=== PATIENT | female | born 1990 | race Caucasian/White ===

== ENCOUNTER 2016-12-02 06:13 | Inpatient (IN) | payer OTHER ==
[~2016-12-02 06:13] MED LIST: Buffered Lidocaine 1% SYR 3ML* 3 ML/SYR SYRINGE INTRADERM ONE; Sodium Citrate/Citric Acid* 15 ML UDC PO ONE
[2016-12-02] MEDS ORDERED: Sodium Citrate/Citric Acid* 15 ML UDC ONE (06:51)
[2016-12-02] MEDS ORDERED: ceFOXitin 2 GM IVPREMIX* 2 GM/50 ML BAG ONE (06:51)
[2016-12-02] MEDS ORDERED: Morphine PF AMP (0.5MG/ML)* 5 MG/10 ML AMP ONE (07:43)
[2016-12-02] MEDS ORDERED: OXYTOCIN* 10 UNITS/ML 1 ML VIAL ONE (07:54)
[2016-12-02] MEDS ORDERED: Bupivacaine 0.5% SDV PF* 30 ML VIAL ONE (07:54)
[2016-12-02] MEDS ORDERED: Ondansetron INJ* 2 MG/ML VIAL ONE (08:09)
[2016-12-02] MEDS ORDERED: Famotidine IV* 10 MG/ML 2 ML (20 mg) ONE (08:09)
[2016-12-02] MEDS ORDERED: Dexamethasone IV* 4 MG/ML 1 ML (4 MG) ONE (08:38)
[2016-12-02] MEDS ORDERED: EPHEDrine (Pressors)* 50 MG/ML VIAL ONE (08:38)
[2016-12-02] MEDS ORDERED: Phenylephrine IV* 40 MCG/ML 10 ML SYRINGE ONE (08:38)
[2016-12-02] MEDS ORDERED: Ketorolac INJ* 30 MG/ML 1 ML VIAL ONE (08:56)
[2016-12-02] MEDS ORDERED: Ondansetron INJ* 2 MG/ML VIAL IV PRN ×2 (08:59→09:06)
[2016-12-02] MEDS ORDERED: fentaNYL* 50 MCG/ML 2 ML VIAL (100 MCG VIAL) IV PRN (08:59)
[2016-12-02] MEDS ORDERED: Levalbuterol 0.63MG/3ML NEB INH PRN (08:59)
[2016-12-02] MEDS ORDERED: Scopolamine 1.5 mg* PATCH ONE (09:01)
[2016-12-02] MEDS ORDERED: Metoclopramide IV* 5 MG/ML 2 ML VIAL ONE (09:01)
[2016-12-02] MEDS ORDERED: Nalbuphine* 20 MG/ML 1 ML VIAL IV PRN (09:06)
[2016-12-02] MEDS ORDERED: diPHENhydraMINE IV* 50 MG/ML 1 ml VIAL (BENADRYL) IV PRN (09:06)
[2016-12-02] MEDS ORDERED: Naloxone* 0.4 MG/ML 1 ML VIAL IV PRN (09:06)
[2016-12-02] MEDS ORDERED: HYDROcodone/ACETAMIN 5-325 MG* 1 TAB PO PRN ×2 (09:06)
[2016-12-02] MEDS ORDERED: PROCHLORPERAZINE INJ 5 MG/ML 2 ML VIAL IV PRN (09:06)
[2016-12-02] MEDS ORDERED: oxyCODONE/Acetamin 5/325 MG* TAB PO PRN (09:36)
[2016-12-02] MEDS ORDERED: Dibucaine 1% 28.35 GM TUBE PR PRN (09:36)
[2016-12-02] MEDS ORDERED: Albuterol HFA INHALER* 8 gm MDI INH PRN (09:38)
[2016-12-02] MEDS: Acetaminophen TAB* 325 MG PO SCH ×4 (10:03→22:03)
[2016-12-02] MEDS: Simethicone TAB* 80 MG TAB.CHEW PO SCH ×3 (12:53→22:00)
[2016-12-02] MEDS: Docusate CAP* 100 MG PO SCH ×2 (14:09→22:00)
[2016-12-02] MEDS: Ketorolac INJ* 30 MG/ML 1 ML VIAL IV SCH ×2 (16:01→22:00)
[2016-12-02] MEDS: Mometasone 220 MCG MDI INH SCH (22:00)
[2016-12-03] MEDS: Ketorolac INJ* 30 MG/ML 1 ML VIAL IV SCH (04:21)
[2016-12-03] MEDS: Famotidine TAB* 20 MG PO SCH (08:42)
[2016-12-03] MEDS: Simethicone TAB* 80 MG TAB.CHEW PO SCH ×4 (08:42→20:05)
[2016-12-03] MEDS: Docusate CAP* 100 MG PO SCH ×3 (08:42→20:05)
[2016-12-03 09:42] LABS: Hematocrit 36 % (35-47); Hemoglobin 11.7 g/dl (12.0-16.0); Mean Corpuscular HGB Conc 33 g/dl (31-36); Mean Corpuscular Hemoglobin 31 pg (27-31); Mean Corpuscular Volume 94 fL (80-97); Mean Platelet Volume 8 um3 (7.4-10.4); Red Blood Count 3.79 10^6/ul (4.0-5.4); Red Cell Distribution Width 14 % (10.5-15); White Blood Count 15.1 10^3/ul (3.5-10.8)
[2016-12-03] MEDS: Ibuprofen TAB* 600 MG PO SCH ×3 (11:32→23:57)
[2016-12-03] MEDS: oxyCODONE/Acetamin 5/325 MG* TAB PO PRN ×3 (11:33→20:05)
[2016-12-03] MEDS: Mometasone 220 MCG MDI INH SCH (20:48)
[2016-12-04] MEDS: oxyCODONE/Acetamin 5/325 MG* TAB PO PRN ×4 (01:57→21:08)
[2016-12-04] MEDS: Ibuprofen TAB* 600 MG PO SCH ×4 (03:43→21:08)
[2016-12-04] MEDS: Famotidine TAB* 20 MG PO SCH (08:32)
[2016-12-04] MEDS: Simethicone TAB* 80 MG TAB.CHEW PO SCH ×4 (08:32→21:08)
[2016-12-04] MEDS: Docusate CAP* 100 MG PO SCH ×3 (08:32→21:08)
[2016-12-04] MEDS: Mometasone 220 MCG MDI INH SCH (21:37)
[2016-12-05] MEDS: oxyCODONE/Acetamin 5/325 MG* TAB PO PRN ×2 (03:56→08:25)
[2016-12-05] MEDS: Ibuprofen TAB* 600 MG PO SCH ×2 (03:57→10:21)
[2016-12-05 08:15] VITALS: BP 136/78
[2016-12-05] MEDS: Famotidine TAB* 20 MG PO SCH (08:25)
[2016-12-05] MEDS: Simethicone TAB* 80 MG TAB.CHEW PO SCH (08:25)
[2016-12-05] MEDS: Docusate CAP* 100 MG PO SCH (08:25)
--- NOTE | 2016-12-06 21:15 | OP ---
OPERATIVE REPORT: DATE OF OPERATION: 12/02/16 DATE OF : 89 SURGEON: Puja Arce MD [facility] [employer] HAT BLOCKER: Dr. Anguiano. PRE-OP DIAGNOSES: 1. History of prior section at 39 plus 0 weeks' gestation. 2. Morbid obesity. 3. Satisfied parity. POST-OP DIAGNOSES: 1. History of prior section at 39 plus 0 weeks' gestation. 2. Morbid obesity. 3. Satisfied parity. OPERATIVE PROCEDURE: Repeat low-transverse section with vacuum assist and bilateral tubal ligation. ANESTHESIA: Spinal ESTIMATED BLOOD LOSS: 900 cc. URINE OUTPUT: 200 cc. IV FLUIDS: 2800 cc lactated Ringer's. MATERIALS TO LAB: Cord blood and bilateral cord segments. INDICATIONS: This patient is a 26-year-old 2, para 1, at 39 plus 0 weeks' gestation. The patient had a that was only complicated by a history of prior section and morbid obesity. The patient elected to have a repeat section and she desired to have permanent sterilization performed at that time. She was extensively counselled and consent was signed. FINDINGS: Normal-appearing uterus, fallopian tubes, and ovaries. The uterus was unlabored, so delivery required vacuum assistance. Delivery was productive of a 7 pounds 13 ounce female infant with Apgars of 9 and 9. Time of delivery was 0833. COMPLICATIONS: None. DESCRIPTION OF PROCEDURE: The risks, benefits, and alternatives were described to the patient, and informed consent was obtained. The patient was taken to the operating room with IV running, where spinal anesthesia was induced and found to be adequate. The patient was prepped and draped in normal sterile fashion in the dorsal supine position with a leftward tilt. A Pfannenstiel skin incision was made with a scalpel through the patient's previous incision. This was carried down to the underlying fascia using the scalpel. The fascia was scored in the midline, and the incision was extended using Magaña scissors. The fascia was dissected off the underlying rectus muscles using blunt and sharp dissection. The rectus muscles were in the midline using dissection with a Skylar clamp. The peritoneum was then entered bluntly. A bladder blade was placed. A low transverse uterine incision was then made with the scalpel. This was carried down to the amniotic membranes. The membranes were then ruptured, productive of clear fluid. The uterine incision was extended using blunt traction. The head was elevated to the level of the incision, but despite fundal pressure, the head could not be delivered. This was partly due to the patient's morbid obesity. A Kiwi vacuum cup was placed on the head, and with pressure and traction, the head then delivered without difficulty. The shoulders then were also both delivered and the body followed. The had excellent tone and cried immediately on delivery. The cord was doubly clamped and cut. The infant was then handed to the awaiting decorating machine tender. Cord blood was collected. The placenta was delivered with manual extraction. The uterus was then exteriorized and cleared of all clots and debris. The uterine incision was then reapproximated using 0 Polysorb in a running-locked fashion. A second layer of imbricating 0 Polysorb sutures was then also placed for good hemostasis. The posterior cul-de-sac was irrigated with saline. The right fallopian tube was then grasped with a Sylvia clamp in the midisthmic region and the mesosalpinx was opened with the Bovie. An approximately 2-3 cm segment of tube was tied off with 2-0 plain gut suture. The segment was excised with Metzenbaum scissors and there was good hemostasis. The same was then performed on the patient's left side. The uterus was then returned to the abdomen. The incision was reinspected and still noted to be hemostatic. The peritoneum was closed with 3-0 Polysorb in a running fashion. The fascia was closed with 0 Polysorb in a running fashion. The subcutaneous tissues were copiously irrigated and made hemostatic using the Bovie. The subcutaneous tissues were then reapproximated using 3-0 Polysorb in interrupted stitches. The skin was then closed with fifi. A sterile bandage was then placed over the incision. The patient tolerated the procedure well. Sponge, lap, and needle counts were correct x2. [id number]/CPS #: [id number] [facility]
== END 2016-12-05 10:31 | disposition home or self-care (01) | DRG 540 ==
LOC: MCHOB 06:13
PROVIDERS: ADMIT Obstetrics & Gynecology; ATTEND Obstetrics & Gynecology
PROC: 0UB70ZZ Excision of Bilateral Fallopian Tubes, Open Approach (ICD-10-PCS; 2016-12-02)
PROC: 10D00Z1 Extraction of Products of Conception, Low, Open Approach (ICD-10-PCS; principal; 2016-12-02 07:45)
DX: O34.211 Maternal care for low transverse scar from previous cesarean delivery (principal); Z68.41 Body mass index [BMI] 40.0-44.9, adult; O99.214 Obesity complicating childbirth; E66.01 Morbid (severe) obesity due to excess calories; Z37.0 Single live birth; Z3A.39 39 weeks gestation of pregnancy
CPT/HCPCS: 36415; 85025; 88302; A9270-GY; J0694; J1100; J1885; J2405; J2590; J2765; J3010

== ENCOUNTER 2018-08-18 12:31 | Emergency (ER) | payer BC, OTHER ==
[2018-08-18 12:43] VITALS: BP 119/68
[2018-08-18] MEDS ORDERED: Albuterol/Ipratropium NEB.SOL* Albuterol 2.5 MG/Ipratropium 0.5 MG 3 ML INH ONE (13:46)
--- NOTE | 2018-08-18 13:46 | UC ---
Respiratory Complaint HPI - HPI Summary HPI Summary: MD note: vital signs stable; afebrile. 05/15 chest discomfort; diffuse feeling of shortness of breath. Wheezing. Constant over 2 days. Chest feels tight and uncomfortable. Nurse's note: Some difficulty breathing, Hx asthma, lots of congestion, chest and lungs feel sore, she has been coughing. No fevers. not a very productive cough. - History of Current Complaint Chief Complaint: UCRespiratory Stated Complaint: CONGESTION, EAR PAIN Time Seen by Provider: 08/18/18 13:31 Hx Obtained From: Patient Hx Last Menstrual Period: 08/11/18 ?: No Timing: Constant Severity Initially: Mild Severity Currently: Mild Pain Intensity: 7 Character: Cough: Nonproductive Aggravating Factors: Deep Breaths Alleviating Factors: Bronchodilator Associated Signs And Symptoms: Positive: Wheezing, Nasal Congestion - Allergies/Home Medications Allergies/Adverse Reactions: Allergies Allergy/AdvReac Type Severity Reaction Status Date / Time amoxicillin Allergy Hives Verified 08/18/18 12:43 Home Medications: Home Medications Budesonide/Formote 160/4.5(NF) [Symbicort 160/4.5 (NF)] 1 puff INH DAILY [History Confirmed 08/18/18] PMH/Surg Hx/FS Hx/Imm Hx - Additional Past Medical History Additional PMH: Patient with hx of asthma: on symbacort and ventolin. Previously Healthy: Yes Other History Of: Negative For: Anticoagulant Therapy - Surgical History Surgical History: Yes Surgery Procedure, Year, and Place: x2. tubal ligation - Family History Known Family History: Positive: Respiratory Disease - Social History Alcohol Use: Occasionally Substance Use Type: Marijuana Substance Use Comment - Amount & Last Used: daily use to help nausea per pt Smoking Status (MU): Former Smoker Have You Smoked in the Last Year: Yes - Immunization History Most Recent Influenza Vaccination: unk Most Recent Tetanus Shot: unk Most Recent Pneumonia Vaccination: unk Review of Systems Constitutional: Negative Skin: Negative Eyes: Negative ENT: Negative Respiratory: Shortness Of Breath, Cough, Other - wheezing; tihtness of chest Cardiovascular: Negative Gastrointestinal: Negative Genitourinary: Negative Motor: Negative Neurovascular: Negative Musculoskeletal: Negative Neurological: Negative Psychological: Negative Is Patient Immunocompromised?: No All Other Systems Reviewed And Are Negative: Yes Physical Exam - Summary Physical Exam Summary: PHYSICAL EXAM: Appearance: The patient is well-appearing, is in no pain or distress, and is well-nourished. Eyes: Conjunctiva are clear. Pupils are equal and reactive to light and accommodation. Extra ocular muscle movement is intact. ENT: The hearing is grossly normal, the pharynx is normal, and the right TM is red. There is no muffled or hoarse voice. No stridor. Mouth: tender in the area of the third molar, lower left. Neck: The neck is supple and there is no lymphadenopathy. Respiratory: The chest is nontender to palpation and without crepitus.. Scattered wheezes, and rhonchi. Cardiovascular: Heart sounds reveal a regular rate and rhythm. There are no clicks, rubs or murmurs. There are no carotid bruits or thrills. Circulation is grossly intact. Abdomen: The abdomen is soft and nontender. There is no organomegaly. Bowel sounds are present and within normal limits. No point tenderness at McBurneys point. Musculoskeletal: Strength is intact. The patient moves all extremities. x. Neurological: The patient is alert. Motor and sensory are examination grossly intact. Speech is normal. Psychological: The patient displays age appropriate behavior Skin: Negative for rashes. Post-treatment: much improved; rare wheeze. MEDICATIONS REVIEWED: Medications have been included in the original chart and reviewed. Triage Information Reviewed: Yes Vital Signs: Initial Vital Signs Temp 98.9 F 08/18/18 12:38 Pulse 89 08/18/18 12:38 Resp 20 08/18/18 12:38 BP 119/68 08/18/18 12:38 Pulse Ox 98 08/18/18 12:38 Diagnostic Evaluation - Laboratory O2 Sat by Pulse Oximetry: 98 Respiratory Course/Dx - Differential Dx/Diagnosis Differential Diagnosis/HQI/PQRI: Asthma, Bronchitis Provider Diagnoses: 1. BRONCHITIS WITH BRONCHOSPASM. 2. ASTHMA. 3. RIGHT OTITIS MEDIA. 4. LEFT LOWER THIRD MOLAR DISCOMFORT: ? PERICORONITIS. Discharge - Sign-Out/Discharge Documenting (check all that apply): Patient Departure All imaging exams completed and their final reports reviewed: Yes - Discharge Plan Condition: Stable Disposition: HOME Prescriptions: Albuterol HFA INHALER* [Ventolin HFA Inhaler*] 1 - 2 puff INH Q4H #1 mdi MDD 8 puffs Clindamycin Cap(NF) [Clindamycin Cap 300 mg Cap(NF)] 300 mg PO TID 7 Days #21 cap MDD 3 Dexamethasone TAB* [Decadron TAB*] 4 mg PO DAILY 4 Days #4 tab MDD 1 Inhaler, Assist Devices [Aerochamber Mv] 1 mis XX Q6HR #1 mis Patient Education Materials: Asthma (DC) Forms: *Work Release Referrals: No Primary Care Phys,NOPCP [Primary Care Provider] - Additional Instructions: WE DISCUSSED: PLEASE SEEK CARE AT THE EMERGENCY DEPARTMENT IF SYMPTOMS WORSEN OR IF NEW SYMPTOMS DEVELOP. FOLLOW UP WITH YOUR PRIMARY CARE PHYSICIAN IF CONDITION CONTINUES BEYOND 3 DAYS WITHOUT IMPROVEMENT. You have the followin. asthma 2. bronchitis with bronchospasm 3. right middle ear infection 4. left lower wisdom tooth impaction and possible infection I have prescribed: 1. albuterol and spacer 2. clindamycin for 7 days 3. dexamethasone for 2 days for the bronchospasm Recheck at any time for increased pain, temperature, difficulty breathing or swallowing. - Billing Disposition and Condition Condition: STABLE Disposition: Home
== END 2018-08-18 14:30 | disposition home or self-care (01) ==
LOC: UCEAST 12:31
DX: J45.909 Unspecified asthma, uncomplicated (principal); R07.89 Other chest pain; H66.91 Otitis media, unspecified, right ear; K08.89 Other specified disorders of teeth and supporting structures; Z88.3 Allergy status to other anti-infective agents; Z87.891 Personal history of nicotine dependence
CPT/HCPCS: 99212; A9270-GY; G0463

== ENCOUNTER 2019-08-14 08:14 | Emergency (ER) | payer OTHER ==
--- NOTE | 2019-08-14 08:27 | ED ---
Asthma - HPI Summary HPI Summary: This pt is a 29 y/o female, with hx of asthma, [facility]. Pt reports her symptoms began this morning upon waking up. She notes she has a nonproductive cough. Denies fever or chills. Pt states she ran out of her asthma medications. She did not use albuterol today because she does not have any. Pt is a former tobacco user, quit 4 weeks ago. Denies alcohol and drug use. - History of Current Complaint Chief Complaint: EDAsthma Stated Complaint: ASTHMA PER PT Time Seen by Provider: 08/14/19 08:18 Hx Obtained From: Patient Hx Last Menstrual Period: 12/24/18 Onset/Duration: Lasting Hours, Still Present Timing: Hours Current Severity: None Pain Intensity: 0 Pain Scale Used: 0-10 Numeric Location/Character: Cough (Nonproductive) Aggravating Symptoms: Nothing Alleviating Symptoms: Nothing Associated Signs and Symptoms: Positive: Shortness of Breath - Allergy/Home Medications Allergies/Adverse Reactions: Allergies Allergy/AdvReac Type Severity Reaction Status Date / Time amoxicillin Allergy Hives Verified 01/06/19 11:10 Home Medications: Home Medications Budesonide/Formote 80/4.5(NF) [Symbicort 80/4.5 (NF)] 1 puff INH BID 08/14/19 [ History Confirmed 08/14/19] PMH/Surg Hx/FS Hx/Imm Hx Endocrine/Hematology History: Denies: Hx Anticoagulant Therapy, Hx Diabetes, Hx Thyroid Disease Cardiovascular History: Denies: Hx Hypertension Respiratory History: Reports: Hx Asthma Denies: Hx Chronic Obstructive Pulmonary Disease (COPD) GI History: Denies: Hx Ulcer - Surgical History Surgical History: Yes Surgery Procedure, Year, and Place: x2. tubal ligation - Immunization History Date of Tetanus Vaccine: 2007 Infectious Disease History: No Infectious Disease History: Denies: Hx Hepatitis, Hx Human Immunodeficiency Virus (HIV), Traveled Outside the [place] in Last 30 Days - Family History Known Family History: Positive: Respiratory Disease - asthma - Social History Alcohol Use: Occasionally Substance Use Type: Reports: Marijuana Substance Use Comment - Amount & Last Used: daily use to help nausea per pt Smoking Status (MU): Former Smoker Amount Used/How Often: quit 4 weeks ago Have You Smoked in the Last Year: Yes Review of Systems Negative: Fever, Chills Positive: Shortness Of Breath, Cough All Other Systems Reviewed And Are Negative: Yes Physical Exam - Summary Physical Exam Summary: VITAL SIGNS: Reviewed. GENERAL: Patient is a well-developed and nourished female who is lying comfortable in the stretcher. Patient is not in any acute respiratory distress. Patient able to speak in full sentences. HEAD AND FACE: No signs of trauma. No ecchymosis, hematomas or skull depressions. No sinus tenderness. EYES: PERRLA, EOMI x 2, No injected conjunctiva, no nystagmus. EARS: Hearing grossly intact. Ear canals and tympanic membranes are within normal limits. MOUTH: Oropharynx within normal limits. NECK: Supple, trachea is midline, no adenopathy, no JVD, no carotid bruit, no c- spine tenderness, neck with full ROM. CHEST: Symmetric, no tenderness at palpation LUNGS: Positive exertional wheezing bilaterally. CVS: Regular rate and rhythm, S1 and S2 present, no murmurs or gallops appreciated. ABDOMEN: Soft, non-tender. No signs of distention. No rebound no guarding, and no masses palpated. Bowel sounds are normal. EXTREMITIES: FROM in all major joints, no edema, no cyanosis or clubbing. NEURO: Alert and oriented x 3. No acute neurological deficits. Speech is normal and follows commands. SKIN: Dry and warm Triage Information Reviewed: Yes Vital Signs On Initial Exam: Initial Vitals Temp Pulse Resp BP Pulse Ox 98.2 F 66 20 135/87 99 08/14/19 08:15 08/14/19 08:15 08/14/19 08:15 08/14/19 08:15 08/14/19 08:15 Vital Signs Reviewed: Yes Procedures - Sedation Patient Received Moderate/Deep Sedation with Procedure: No Diagnostics - Vital Signs Vital Signs Temp Pulse Resp BP Pulse Ox 08/14/19 08:15 98.2 F 66 20 135/87 99 - Laboratory Result Diagrams: 08/14/19 08:45 08/14/19 08:45 Lab Statement: Any lab studies that have been ordered have been reviewed, and results considered in the medical decision making process. - Radiology Chest XR Radiology Interpretation Completed By: Radiologist Summary of Radiographic Findings: IMPRESSION: No evidence for active cardiopulmonary disease. Dr. Bowles has reviewed this report. Re-Evaluation - Re-Evaluation First Eval Re-Evaluation Time: 10:06 Change: Improved Comment: Pt is feeling better. She will be discharged home. Asthma Course/Dx - Course Assessment/Plan: Blood work without any significant abnormality except for glucose of 102, urinalysis is negative for UTI. Chest x-ray impression: No evidence for acute cardiopulmonary disease. In the ED course the patient was given DuoNeb and Solu-Medrol. After these medications were given the symptoms have significantly improved. O2 sat is 98% on room air. I discussed all the findings and test results with the patient. Patient was instructed to return to the emergency room immediately if any of the symptoms return or worsen . Plan of care was discussed with the patient and understands and agrees. All questions were answered at patient satisfaction. There were no further complaints or concerns. Lung exam before discharge: CTA B/L. Good air exchange. No wheezing or crackles heard. CVS: S1 and S2 present. No murmurs appreciated. Patient is alert and oriented x 3. Patient is hemodynamically stable. Patient will be discharged home with follow up from her PCP in the next 2-3 days. - Diagnoses Provider Diagnoses: Asthma exacerbation Discharge ED - Sign-Out/Discharge Documenting (check all that apply): Patient Departure - Discharge home - Discharge Plan Condition: Stable Disposition: HOME Prescriptions: Albuterol 2.5MG/3ML (0.083%)* [Ventolin 2.5 MG/3 ML NEB.CHARLES*] 2.5 mg INH Q6H PRN #1 box PRN Reason: Dyspnea Albuterol HFA INHALER* [Ventolin HFA Inhaler*] 2 puff INH Q4H PRN #1 mdi PRN Reason: Dyspnea predniSONE TAB* [Deltasone 20 MG TAB*] 40 mg PO DAILY #8 tab Patient Education Materials: Asthma (ED) Referrals: [facility] [Outside] Additional Instructions: FOLLOW UP WITH YOUR PRIMARY CARE PROVIDER IN 2-3 DAYS. If you don't have one follow up with [facility]. RETURN TO THE EMERGENCY DEPARTMENT FOR ANY WORSENING OR NEW SYMPTOMS. - Attestation Statements Document Initiated by Scribe: Yes Documenting Scribe: Rebeca Griggs Provider For Whom Scribe is Documenting (Include Credential): Yariel Bowles MD Scribe Attestation: Rebeca St, scribed for Yariel Bowles MD on 08/14/19 at 1017. Status of Scribe Document: Ready
[2019-08-14] MEDS: Albuterol/Ipratropium NEB.SOL* Albuterol 2.5 MG/Ipratropium 0.5 MG 3 ML INH ONE (08:30)
[2019-08-14] MEDS: methylPREDNISolone 125 MG* 2 ML VIAL IV ONE (08:34)
[2019-08-14 08:53] LABS: ABS Basophils 0.1 10^3/ul (0-0.2); ABS Eosinophils 0.6 10^3/ul (0-0.6); ABS Monocytes 0.3 10^3/ul (0-0.8); ABS Neutrophils 3.5 10^3/ul (1.5-7.7); Eosinophil % 9.5 %; Hematocrit 44 % (35-47); Hemoglobin 14.9 g/dL (12.0-16.0); Lymphocyte % 30.9 %; Mean Corpuscular HGB Conc 34 g/dL (31-36); Mean Corpuscular Hemoglobin 32 pg (27-31); Mean Corpuscular Volume 94 fL (80-97); Mean Platelet Volume 7.8 fL (7.4-10.4); Nucleated Red Blood Cells % 0.1; Platelet Count 245 10^3/uL (150-450); Red Blood Count 4.71 10^6 /uL (3.70-4.87); Red Cell Distribution Width 13 % (10-15); White Blood Count 6.5 10^3/uL (3.5-10.8)
[2019-08-14 09:24] LABS: Albumin 4.7 g/dL (3.2-5.2); Albumin/Globulin Ratio 2.4 (1-3); BUN/Creatinine Ratio 15.8 (8-20); C Reactive Protein 3.56 mg/L (<8.01); Calcium 9.4 mg/dL (8.6-10.3); EGFR African American 84.2 (>60); EGFR Non-African American 69.5 (>60); Potassium 3.6 mmol/L (3.5-5.0); Total Bilirubin 0.6 mg/dL (0.2-1.0); Total Protein 6.7 g/dL (6.4-8.9)
[2019-08-14 10:01] LABS: Urine Appearance Clear; Urine Bacteria Absent (Absent); Urine Bilirubin Negative (Negative); Urine Blood 3+ (Negative); Urine Color Straw; Urine Glucose Negative (Negative); Urine Ketones Negative (Negative); Urine Nitrite Negative (Negative); Urine Protein Negative (Negative); Urine Red Blood Cell Trace(0-2/hpf) (Absent); Urine Specific Gravity 1.005 (1.010-1.030); Urine Squamous Epithelial Cell Present (Absent); Urine Urobilinogen Negative (Negative); Urine White Blood Cell Trace(0-5/hpf) (Absent)
[2019-08-14 10:19] VITALS: BP 132/81
== END 2019-08-14 10:18 | disposition home or self-care (01) ==
LOC: ED 08:14
DX: J45.901 Unspecified asthma with (acute) exacerbation (principal); Z87.891 Personal history of nicotine dependence; Z88.0 Allergy status to penicillin; Z79.899 Other long term (current) drug therapy
CPT/HCPCS: 36415; 71046; 80053; 81003; 81015; 83880; 85025; 86140; 96374; 99283; A9270-GY; J2930

== ENCOUNTER 2019-08-24 14:31 | Emergency (ER) | payer OTHER ==
[2019-08-24 14:43] VITALS: BP 159/99
--- NOTE | 2019-08-24 15:36 | UC ---
Ear Complaint HPI - HPI Summary HPI Summary: PATIENT HAS HAD A FEW DAYS OF COUGH AND CONGESTION. NO FEVER OR NAUSEA. TODAY DEVELOPED RIGHT EAR PAIN AND DECREASED HEARING. - History of Current Complaint Chief Complaint: UCEar Stated Complaint: EAR PAIN Time Seen by Provider: 08/24/19 14:48 Hx Obtained From: Patient Hx Last Menstrual Period: a few weeks ago Onset/Duration: Gradual Onset, Lasting Days, Still Present Severity Initially: Moderate Severity Currently: Moderate Pain Intensity: 6 Pain Scale Used: 0-10 Numeric Associated Signs/Symptoms: Positive: Hearing Loss, URI Symptoms - Allergies/Home Medications Allergies/Adverse Reactions: Allergies Allergy/AdvReac Type Severity Reaction Status Date / Time amoxicillin Allergy Hives Verified 08/24/19 14:43 PMH/Surg Hx/FS Hx/Imm Hx Respiratory History: Asthma Other History Of: Negative For: Anticoagulant Therapy - Surgical History Surgical History: Yes Surgery Procedure, Year, and Place: x2. tubal ligation - Family History Known Family History: Positive: Respiratory Disease - asthma - Social History Alcohol Use: Occasionally Substance Use Type: Marijuana Substance Use Comment - Amount & Last Used: daily use to help nausea per pt Smoking Status (MU): Former Smoker Amount Used/How Often: quit 4 weeks ago Have You Smoked in the Last Year: Yes - Immunization History Most Recent Influenza Vaccination: unk Most Recent Tetanus Shot: unk Most Recent Pneumonia Vaccination: unk Review of Systems All Other Systems Reviewed And Are Negative: Yes Constitutional: Positive: Negative Skin: Positive: Negative ENT: Positive: Ear Ache, Nasal Discharge Respiratory: Positive: Cough Cardiovascular: Positive: Negative Gastrointestinal: Positive: Negative Musculoskeletal: Positive: Negative Physical Exam Triage Information Reviewed: Yes Appearance: Well-Appearing, No Pain Distress, Well-Nourished Vital Signs: Initial Vital Signs Temp 99 F 08/24/19 14:40 Pulse 84 08/24/19 14:40 Resp 15 08/24/19 14:40 BP 159/99 08/24/19 14:40 Pulse Ox 98 08/24/19 14:40 Vital Signs Reviewed: Yes Eyes: Positive: Conjunctiva Clear ENT: Positive: Hearing grossly normal, Pharynx normal, Other - LEFT EAC/TM NORMAL. RIGHT EAC ERYTHEMATOUS. RIGHT TM OPAQUE, BULGING Neck: Positive: Supple, Nontender, Enlarged Nodes @ - SPFL CERVICAL LAD Respiratory: Positive: No respiratory distress, No accessory muscle use, Decreased breath sounds, Wheezing - DIFFUSE Cardiovascular Exam: Normal Abdomen Description: Positive: Soft Musculoskeletal: Positive: No Edema Neurological: Positive: Alert Psychological: Positive: Age Appropriate Behavior Ear Complaint Course/Dx - Differential Dx/Diagnosis Provider Diagnosis: Right acute otitis media, Asthma exacerbation Discharge ED - Sign-Out/Discharge Documenting (check all that apply): Patient Departure All imaging exams completed and their final reports reviewed: No Studies - Discharge Plan Condition: Stable Disposition: HOME Prescriptions: Budesonide/Formote 160/4.5(NF) [Symbicort 160/4.5 (NF)] 2 puff INH BID #1 mdi Cefdinir [Cefdinir 300 MG CAP] 300 mg PO BID #20 capsule Ofloxacin 0.3% (Ear Drop)* [Floxin 0.3% OTIC.CHARLES (Ear Drop)] 10 drop RIGHT EAR DAILY #1 btl predniSONE TAB* [Deltasone TAB*] 50 mg PO DAILY #3 tab Patient Education Materials: Asthma (ED), Ear Infection (ED) Forms: *Work Release Referrals: No Primary Care Phys,NOPCP [Primary Care Provider] - Additional Instructions: YOU HAVE A RIGHT-SIDED EAR INFECTION AND ALSO SEEM TO BE EXPERIENCING AN EXACERBATION OF YOUR ASTHMA. TAKE THE ANTIBIOTICS FOR THE FULL COURSE. SHORT BURST OF PREDNISONE TO HELP CALM DOWN YOUR AIRWAYS. I HAVE REFILLED YOUR SYMBICORT. USE YOUR ALBUTEROL PRESCRIBED. FOLLOW-UP WITH YOUR NEW PCP AFTER YOUR MOVE NEXT WEEK OR RETURN HERE BEFORE THAT IF YOU ARE NOT IMPROVING EXPECTED WITH THE ABOVE TREATMENT. - Billing Disposition and Condition Condition: STABLE Disposition: Home
== END 2019-08-24 15:25 | disposition home or self-care (01) ==
LOC: UCEAST 14:31
DX: J45.901 Unspecified asthma with (acute) exacerbation (principal); H66.91 Otitis media, unspecified, right ear; Z88.0 Allergy status to penicillin; Z87.891 Personal history of nicotine dependence
CPT/HCPCS: 99212; G0463